=== PATIENT | female | born 1950 | race Caucasian/White ===

== ENCOUNTER 2017-09-27 09:45 | Outpatient (RCR) | payer MEDICARE, OTHER ==
--- NOTE | 2017-07-07 13:38 | PT INITIAL EVALUATION ---
MEDICAL DIAGNOSIS: right shoulder pain TREATMENT DIAGNOSIS: same DATE OF ONSET: 01/03/17 SUBJECTIVE: Nelly Negron presents to physical therapy with R shoulder pain. She reports that the pain started approximately 6 months ago when she was carrying her groceries. She reports that the R shoulder is starting to feel like it is getting worse. She states that she had a similar injury approximately 6-7 years ago that improved with physical therapy. She reports that stretching in certain positions (extreme extension and extreme abduction increases her pain to 8/10 and describes the pain as a jolt. She reports that her pain reduces to 0/10 with resting. Furthermore, she reports that she has a lot of achiness during night due to sleeping on her shoulder at night. REHAB PROBLEM LIST: Increased Pain Decreased ROM Decreased Strength Decreased Endurance Decreased Function Decreased ADL's PREVIOUS MEDICAL HISTORY: See EMR OCCUPATION: Retired OBJECTIVE: Posture: She demonstrates minimal B rounded shoulders, increased thoracic kyphosis, and decreased lumbar lordosis. ROM: R shoulder AROM: flexion: full AROM with end range pain, abduction: full AROM with painful arc and empty end feel, scaption: full AROM with empty end feel. ER: full AROM with empty end feel. IR: full AROM with normal end feel. Strength: R shoulder: flexion: 4+/5 with no pain. scaption: 3+/5 with pain, IR and ER: 4+/5 with no pain, extension: 4+/5 with no pain. Palpation: TTP: insertional point of supraspinatus and LHB. Sensation: C2-T1: intact and no deviations from R to L sides Special Tests: (+) tendinopathy with supraspinatus and LHB: pain with palpation , pain with stretching, and pain with resistance, (+) impingement via yocums, neers, and hdz-sita. (-) full tear of RTC structures. Mobility: Independent Gait: Glenohumeral rhythm: normal ASSESSMENT: Nelly will benefit from skilled physical therapy addressing the listed impairments to improve function and QOL. Short Term Goals 6 weeks: Pt will improve R shoulder pain from baseline to 0/10 pain with functional activities to improve function and QOL. 6 weeks: Pt will be able to improve R shoulder AROM with 0/10 painful arc and normal end feels to improve function and QOL. Patient's Goals decrease R shoulder pain PLAN: Patient to be seen for Manual Therapy/STM/MET Strengthening/condition Ice/Heat Range of Motion Spinal Stabilization Work Hardening/Cond Stretching Iontophoresis Neuromuscular Re-ed Closed Chain Program Electrical Stim Posture/Body mechanics Home Exercise Program Therapeutic Activities 2x/Week for 6 Weeks If you have any questions, comments, or concerns about this report or plan, please contact me at . Thank you, Sukhi Baldwin, PT, DPT MTDD
--- NOTE | 2017-08-16 10:25 | PT PLAN OF CARE ---
Physician: Effie Simmons DO Patient is being seen: 2x/week Therapist: Sukhi Baldwin, PT, DPT Medical Diagnosis: right shoulder pain Treatment Diagnosis: same Date of Onset: 01/03/17 Date of Initial Evaluation: 07/06/17 Date patient was last seen: 08/16/17 Number of treatments: 10 Number of cancellations/No shows: 1 INTERVENTIONS: Manual Therapy/STM/MET Strengthening/condition Ice/Heat Range of Motion Spinal Stabilization Work Hardening/Cond Stretching Iontophoresis Neuromuscular Re-ed Closed Chain Program Electrical Stim Posture/Body mechanics Home Exercise Program Therapeutic Activities GOALS: 6 weeks: Pt will improve R shoulder pain from baseline to 0/10 pain with functional activities to improve function and QOL. Progressing well 6 weeks: Pt will be able to improve R shoulder AROM with 0/10 painful arc and normal end feels to improve function and QOL. MET PATIENT'S GOAL: decrease R shoulder pain Status of Patient's Goals: Progressing well Patient Compliance: Good Prognosis: Excellent Reasons for continuing therapy: This is a progress note for Nelly Negron. She reports that she is doing well. She reports that she felt one jolt over the week , which is a significant improvement. She denies any resting pain. She reports that she feels like she is 90% back to her normal. She is progressing well within PT with the following improvements demonstrated: no pain with palpation, full AROM of R shoulder flexion, scaption, abduction, ER, IR along with normal end feels, and negative tests for impingement. We will continue to reduce injury and then once the injury is fully reduced in the next week, we will perform recovery of function and then discharge from PT to [facility]. Posture: She demonstrates minimal B rounded shoulders, increased thoracic kyphosis, and decreased lumbar lordosis. ROM: R shoulder AROM: flexion: full AROM with end range pain, abduction: full AROM with empty end feel, scaption: full AROM with empty end feel. However, once , we completed repeated extension with overpressure, the end range pain resolved. ER: full AROM with normal end feel. IR: full AROM with normal end feel. Strength: R shoulder: flexion: 4+/5 with no pain. scaption: 4+/5 with no pain, IR and ER: 4+/5 with no pain, extension: 4+/5 with no pain. Palpation: No longer TTP Special Tests: (-) tendinopathy with supraspinatus and LHB: pain with palpation , pain with stretching, and pain with resistance, (-) impingement via yocums, neers, and hdz-sita. (-) full tear of RTC structures. Mobility: Independent If you have questions, please contact me at [phone]. Thank you, Sukhi Baldwin, PT, DPT CRESCENCIOD
[~2017-09-27 09:45] MED LIST: ASC500 PO; ASPI-715 PO; CALC-649 PO; CIT500PT PO; ESOM40CA42 PO; FISH OIL 1,2001 CAP PO; MULT-820 PO; PAN40 PO
--- NOTE | 2017-09-27 10:58 | PT PLAN OF CARE ---
Physician: Effie Simmons DO Patient is being seen: 1-2x/week Therapist: Sukhi Baldwin, PT, DPT Medical Diagnosis: right shoulder pain Treatment Diagnosis: same Date of Onset: 01/03/17 Date of Initial Evaluation: 07/06/17 Date patient was last seen: 09/27/17 Number of treatments: 16 Number of cancellations/No shows: 0 INTERVENTIONS: Manual Therapy/STM/MET Strengthening/condition Ice/Heat Range of Motion Spinal Stabilization Work Hardening/Cond Stretching Iontophoresis Neuromuscular Re-ed Closed Chain Program Electrical Stim Posture/Body mechanics Home Exercise Program Therapeutic Activities GOALS: 6 weeks: Pt will improve R shoulder pain from baseline to 0/10 pain with functional activities to improve function and QOL. MET 6 weeks: Pt will be able to improve R shoulder AROM with 0/10 painful arc and normal end feels to improve function and QOL. MET PATIENT'S GOAL: decrease R shoulder pain: MET Status of Patient's Goals: MET Patient Compliance: Excellent Prognosis: Excellent Reasons for continuing therapy: This is a discharge note for Nelly Negron. She reports that she is doing well. She reports that her shoulder is feeling great. She states that she has been performing her specific exercise with great success. She reports that she feels like she can continue with the recovery process and ultimately recover back to 100%. Nelly progressed well within PT. She demonstrated the following improvements: increased PROM-AROM of R shoulder to full with normal end feels, improved RTC and periscapular strength (returned to L side), and returned to prior level of function. She is independent on her specific exercise and will return to prior level of function in the next few weeks. She has met all of her goals. As a result, she will be discharged from PT to [facility]. Posture: She demonstrates minimal B rounded shoulders, increased thoracic kyphosis, and decreased lumbar lordosis. ROM: R shoulder AROM: flexion: full AROM with end range pain, abduction: full AROM with empty end feel, scaption: full AROM with empty end feel. However, once , we completed repeated extension with overpressure, the end range pain resolved. ER: full AROM with normal end feel. IR: full AROM with normal end feel. Strength: R shoulder: flexion: 4+/5 with no pain. scaption: 4+/5 with no pain, IR and ER: 4+/5 with no pain, extension: 4+/5 with no pain. Palpation: No longer TTP Special Tests: (-) tendinopathy with supraspinatus and LHB: pain with palpation , pain with stretching, and pain with resistance, (-) impingement via yocums, neers, and hdz-sita. (-) full tear of RTC structures. Mobility: Independent If you have questions, please contact me at [phone]. Thank you, Sukhi Baldwin, PT, DPT MTDD
== END 2017-09-27 18:00 | disposition home or self-care (01) ==
LOC: PT 09:45
PROVIDERS: ATTEND Family Medicine
DX: M25.511 Pain in right shoulder (principal)
CPT/HCPCS: 97010; 97110; 97140; 97162; G0283

== ENCOUNTER → 2018-09-19 | Outpatient (CLI) | payer MEDICARE, OTHER ==
--- NOTE | 2018-09-20 16:44 | RADIOLOGY IMAGING REPORT ---
FACILITY: [facility] [place] PATIENT NAME: JOSE PERERA : [id number] MR: [id number] V: [id number] EXAM DATE: ORDERING PHYSICIAN: DONNELL MARIE TECHNOLOGIST: Karma Leonard PROCEDURE:BILATERAL DIGITAL SCREENING MAMMOGRAM WITH CAD ASSISTED INTERPRETATION & 3D TOMOSYNTHESIS COMPARISON:Prior mammograms 08/08/17, 07/05/16, 06/29/15, 07/26/13. INDICATIONS:SCREENING FINDINGS: Scattered fibroglandular densities are seen throughout the breasts. The parenchymal pattern has remained stable allowing for difference in mammographic technique & patient positioning. DIAGNOSTIC CATEGORY 1--NEGATIVE. RECOMMENDATIONS: ROUTINE MAMMOGRAM AND CLINICAL EVALUATION. IMPRESSION: BIRADS 1: Negative. No significant abnormality is seen. Dictated by: Jen Hoff M.D. on 09/19/2018 at 16:47 Transcribed by: ENID on 09/20/2018 at 8:27 Approved by: Jen oHff M.D. on 09/20/2018 at 16:43 [facility]
== END ==
LOC: MAMO 00:35
PROVIDERS: ATTEND Family Medicine
DX: Z12.31 Encounter for screening mammogram for malignant neoplasm of breast (principal)
CPT/HCPCS: 77063; 77067